=== PATIENT | male | born 1970 | race Caucasian/White ===

== ENCOUNTER 2017-07-16 08:17 | Emergency (ER) | payer BC ==
[~2017-07-16] VITALS: Ht 165.1 cm; Wt 79.1 kg
[~2017-07-16 08:17] MED LIST: NAPROXEN500 MG PO; VALIUM5 MG PO
[2017-07-16 09:01] LABS: EOSINOPHIL (%) 5.6 % (0-5); EOSINOPHIL COUNT 0.2 K/uL (0-0.3); HEMATOCRIT 43.7 % (38.0-50.0); INSTRUMENT ABS NEUTROPHIL CT 2.2 K/uL; LYMPHOCYTE COUNT 1.4 K/uL (1.0-2.8); MCH 31.4 PG (29.0-34.0); MCHC 34.1 G/DL (30.0-36.0); MCV 92.2 FL (86-99); MEAN PLAT.VOLUME 12.3 uM^3 (9.0-12.4); MONOCYTE (%) 8.7 % (3-12); MONOCYTE COUNT 0.4 K/uL (0-0.8); NEUTROPHIL (%) 52.8 % (45-76); NEUTROPHIL COUNT 2.2 K/uL (1.8-6.4); PLATELET COUNT 159 K/uL (156-360); RBC DIS.WIDTH-CV 11.7 % (11.8-14.6); RBC DIS.WIDTH-SD 39.7 % (39-53); RED BLOOD COUNT 4.74 M/uL (4.00-5.50); WHITE BLOOD COUNT 4.3 K/uL (4.1-10.2)
[2017-07-16 09:09] LABS: CHLORIDE 105 mEq/L (99-109); POTASSIUM 4.4 mEq/L (3.7-5.4); SODIUM 138 mEq/L (136-147)
[2017-07-16 09:11] LABS: GLUCOSE 102 mg/dL (70-99)
[2017-07-16 09:12] LABS: ANION GAP 8 MEQ/L (2-14)
[2017-07-16 09:13] LABS: TOTAL BILIRUBIN 0.9 mg/dL (0.0-1.0)
[2017-07-16 09:14] LABS: ALKALINE PHOSPHATASE 78 IU/L (3-129)
[2017-07-16 09:15] LABS: GFR ESTIMATE (CALCULATED) > 59 mL/min/ (58.99-99999)
[2017-07-16 09:16] LABS: UREA NITROGEN (BUN) 18 mg/dL (9-23)
[2017-07-16 10:30] LABS: ADD MIUA? YES; BILIRUBIN NEGATIVE; BLOOD LARGE; COLOR STRAW ((YELLOW)); GLUCOSE (STRIP) NEGATIVE; KETONES NEGATIVE; LEUKOCYTES NEGATIVE; NITRITE NEGATIVE; PROTEIN (STRIP) NEGATIVE; SPECIFIC GRAVITY 1.043 (1.000-1.030); UROBILINOGEN 0.2 MG/DL (0.2-1.0)
[2017-07-16 10:43] LABS: BACTERIA NONE SEEN /HPF; EPITHELIAL CELLS NONE SEEN /HPF; MUCUS TRACE /LPF; RED BLOOD CELLS TNTC /HPF (0-5); UCUL ADDED? YES; WHITE BLOOD CELLS NONE SEEN /HPF (0-5)
[2017-07-16] MEDS ORDERED: MOTRIN600 MG PO (11:28)
[2017-07-16] MEDS ORDERED: ROXICODONE5 MG PO (11:28)
[2017-07-16 11:59] VITALS: BP 125/96
[2017-07-17] MEDS ORDERED: FLOMAX0.4 MG PO (22:52)
== END 2017-07-16 12:01 | disposition home or self-care (01) ==
LOC: EME 08:17
PROVIDERS: Emergency Medicine
DX: N20.0 Calculus of kidney (principal)
CPT/HCPCS: 74177; 80053; 81003; 85025; 87077; 87086; 87186; 99281; 99284; J2270

== ENCOUNTER 2017-07-17 20:22 | Emergency (ER) | payer BC ==
[~2017-07-17] VITALS: Ht 165.1 cm; Wt 78.5 kg
[~2017-07-17 20:22] MED LIST changes: +MOTRIN600 MG PO; +ROXICODONE5 MG PO
[2017-07-17] MEDS ORDERED: FLOMAX0.4 MG PO (22:52)
[2017-07-17 23:39] VITALS: BP 155/90
== END 2017-07-17 23:46 | disposition home or self-care (01) ==
LOC: EME 20:22
DX: N20.1 Calculus of ureter (principal); Z87.442 Personal history of urinary calculi; Z88.5 Allergy status to narcotic agent
CPT/HCPCS: 99281; 99284; J1885